=== PATIENT | female | born 1970 | race Caucasian/White ===

== ENCOUNTER 2020-11-02 19:08 | Emergency (ER) | payer OTHER ==
[2020-11-02 19:27] VITALS: BP 164/89
--- NOTE | 2020-11-02 20:09 | XRAY Report ---
PROCEDURE: Foot 3 View RT INDICATIONS: trauma TECHNIQUE: 3 views of the foot were acquired. COMPARISON: None available. FINDINGS: Bones: Small curvilinear density projects over the dorsal aspect of the right foot at the level of t he distal tarsal/base of the metatarsal. This is seen only on the lateral view. Overlying soft tissue edema. Remainder of the osseous structures appear intact. No dislocation. Prominent plantar calcanea l spur. Tiny retrocalcaneal enthesophyte. No fractures or dislocations. No suspicious bony lesions. Soft tissues: No tibiotalar joint effusion. Achilles tendon appears normal. IMPRESSION: Curvilinear ossific density projecting over the dorsal aspect of the right foot near the base of the metatarsal/distal tarsal with overlying soft tissue swelling. This may represent a small avulsion fra gment given history of trauma. Recommend clinical correlation for point tenderness in this region. Ot herwise, no other acute fracture seen. Prominent plantar calcaneal enthesophyte. Reviewed by: Dandy Lerma MD on 11/02/2020 8:07 PM PDT Approved by: Dandy Lerma MD on 11/02/2020 8:07 PM PDT Station ID: [id number]
[2020-11-02] MEDS ORDERED: HYDROcod/ACET 5/325 Prepack 4 PO STA (20:20)
--- NOTE | 2020-11-02 20:23 | ED Physician Documentation ---
PD HPI LOWER EXT INJURY - Stated complaint Stated Complaint: RT FOOT INJ - Chief complaint Chief Complaint: Trauma Ext - History obtained from History obtained from: Patient - History of Present Illness PD HPI LOW EXT INJURY LOCATION: Right (She stepped off a curb funny and felt a pop in the right foot. She can walk and bear weight but it is painful. No other injuries.) Timing - onset: Today Review of Systems Constitutional: reports: Reviewed and negative Nose: reports: Reviewed and negative Throat: reports: Reviewed and negative Cardiac: reports: Reviewed and negative PD PAST MEDICAL HISTORY - Past Medical History Past Medical History: Yes Psych: Depression, Anxiety - Past Surgical History Past Surgical History: Yes General: Appendectomy Ortho: Other - Present Medications Home Medications: Ambulatory Orders Medication Instructions Recorded Confirmed Bupropion HCl [Wellbutrin] 150 mg PO DAILY 12/13/13 11/02/20 Phentermine HCl 30 mg PO DAILY 12/13/13 11/02/20 HYDROcod/ACETAM 5/325 [[place] 5/325] 1 - 2 tab PO Q6H PRN #10 tablet 11/02/20 - Allergies Allergies/Adverse Reactions: Allergies Allergy/AdvReac Type Severity Reaction Status Date / Time latex Allergy Hives Verified 11/02/20 19:27 - Social History Does the pt smoke?: No Smoking Status: Never smoker Does the pt drink ETOH?: No Does the pt have substance abuse?: No - Immunizations Immunizations are current?: Yes - POLST Patient has POLST: No PD ED PE NORMAL - Vitals Vital signs reviewed: Yes - General General: Alert and oriented X 3, No acute distress - HEENT HEENT: PERRL, EOMI - Extremities Extremities: Other (There is minimal tenderness to the distal second and third metatarsals. Pain with plantarflexion of the second toe. There is no other tenderness of the foot. Specifically no tenderness near the proximal meta tarsals noting the x-ray read.) - Neuro Neuro: Alert and oriented X 3, Normal speech Results - Vitals Vitals: Vital Signs - 24 hr 11/02/20 19:24 Temperature 35.8 C L Heart Rate 93 Respiratory 20 Rate Blood Pressure 164/89 H O2 Saturation 96 Oxygen O2 Source Room air - Rads (name of study) Three-view x-ray right foot Radiology: EMP read contemporaneously (Curvilinear ossific density over the dorsal aspect near the base of the metatarsal distal tarsals. Note she has no tenderness there.) PD MEDICAL DECISION MAKING - ED course ED course: I am prescribing a short course of short-acting opioid pain medication for this patient. I have reviewed the patients [employer] and no concerning findings were noted. I have discussed that the opioids are for short term therapy only, and will not be refilled from the ED. Placed in a boot for comfort. Despite the x-ray read I do not think she has a fracture noting she is not tender where the abnormality is on x-ray. Departure - Departure Disposition: 01 Home, Self Care Clinical Impression: Sprain of foot, right Qualifiers: Encounter type: initial encounter Qualified Code(s): S93.601A - Unspecified sprain of right foot, initial encounter Condition: Good Record reviewed to determine appropriate education?: Yes Instructions: ED Sprain Foot Prescriptions: HYDROcod/ACETAM 5/325 [[place] 5/325] 1 - 2 tab PO Q6H PRN #10 tablet PRN Reason: Pain Comments: Recheck with your doctor in a week if not improved, return for new or worsening symptoms. You may walk and bear weight as tolerated. I am prescribing a short course of narcotic pain medication for you. These are potentially dangerous and addictive medications that should be used carefully. These medications may constipate you. Take an etyh-hlm-llnhtlk stool softener (docusate) twice daily with plenty of water while taking these medications. If you go 24 hours without a bowel movement, take rewu-vmx-mfupayl miralax, per package instructions. Do not drink or drive while taking these medications. If you received narcotic or sedating medications while in the emergency department, do not drive for 24 hours. Store this medication in a safe, secure place and out of reach of children. It is a violation of federal law to give or sell this medication to another person or to use in a manner other than prescribed. The ED will not refill narcotic prescriptions, including prescriptions lost or stolen. To dispose of unwanted medications: 1. [facility] [address] in [place] has a medication drop box. They accept prescription medications (in pill form) Wednesday through Wednesday 9:00 a.m. to 5:00 p.m. 2. [facility] [employer] [facility] accepts prescription medications (in pill form only) for disposal year round. Call for more information. 3. Contact the [facility] for the next [facility] sponsored prescription drug collection event. , [phone], or [phone]; Note that many narcotic pain relievers also contain Tylenol/acetaminophen. Please ensure that your total dose of acetaminophen from all sources does not exceed 3 g (3000 mg) per day.
== END 2020-11-02 20:55 | disposition home or self-care (01) ==
LOC: ED 19:08
DX: S93.601A Unspecified sprain of right foot, initial encounter (principal); X50.1XXA Overexertion from prolonged static or awkward postures, initial encounter; Y93.01 Activity, walking, marching and hiking; Y92.480 Sidewalk as the place of occurrence of the external cause; M77.31 Calcaneal spur, right foot
CPT/HCPCS: 99283

== ENCOUNTER 2021-07-09 15:09 | Outpatient (CLI) | payer OTHER ==
--- NOTE | 2021-07-10 09:11 | Mammography Report ---
BILATERAL DIGITAL SCREENING MAMMOGRAM 3D/2D: 07/09/2021 CLINICAL: Routine screening. Comparison is made to exams dated: 09/03/2016 mammogram and 11/29/2014 mammogram - [facility]. There are scattered fibroglandular elements in both breasts. No significant masses, calcifications, or other findings are seen in either breast. There has been no significant interval change. IMPRESSION: NEGATIVE There is no mammographic evidence of malignancy. A 1 year screening mammogram is recommended. This exam was interpreted at Station ID: [id number]. NOTE: For mammograms, a report in lay terms will be sent to the patient. Approximately 15% of breast malignancies will not be visualized mammographically. In the management of a palpable breast mass, a negative mammogram must not discourage biopsy of a clinically suspicious lesion. Electronically Signed By: Raphael [email or web address]:07/10/2021 08:34:07 ACR BI-RADS Category 1: Negative [id number] PARENCHYMAL PATTERN: (A) - The breast(s) demonstrate(s) scattered fibroglandular densities. BI-RADS CATEGORY: (1) - 1 RECOMMENDATION: (ANNUAL) - Recommend routine annual screening mammography. [id number] 1 year screening LATERALITY: (B)
== END 2021-07-09 15:10 | disposition home or self-care (01) ==
LOC: DI.N 15:09
DX: Z12.31 Encounter for screening mammogram for malignant neoplasm of breast (principal)